=== PATIENT | female | born 1975 | race Two or more races ===

== ENCOUNTER 2021-03-05 17:53 | Emergency (ER) | payer OTHER ==
[~2021-03-05] VITALS: Ht 170.2 cm; Wt 74.8 kg
[2021-03-06] MEDS ORDERED: SYMBICORT 16010.2 GM IH (00:59)
[2021-03-06] MEDS ORDERED: OSEL75CA PO (00:59)
[2021-03-06] MEDS ORDERED: MUCINEX DM ER1 EAC1 PO (00:59)
[2021-03-06] MEDS ORDERED: MEDROLPACK PO (00:59)
== END 2021-03-06 01:53 | disposition home or self-care (01) ==
LOC: ER 17:53
DX: U07.1 COVID-19 (principal); J98.01 Acute bronchospasm; J10.1 Influenza due to other identified influenza virus with other respiratory manifestations; Z20.822 Contact with and (suspected) exposure to COVID-19